=== PATIENT | male | born 1960 | race African-American/Black ===

== ENCOUNTER → 2017-05-02 | Outpatient (CLI) | payer OTHER ==
--- NOTE | 2017-05-02 12:26 | EST ---
DATE OF SERVICE: 05/02/2017 AGE: 57Y SEX: M HT: 72" WT: 234 lbs. Protocol Sebastian: X Other: Stress Stage: 2 Dur. of Exercise: 7:00 *Heart Rate Blood Pressure *Rest: 82 Rest: 132/91 * *Max. Achieved: 158 Maximum BP: 196/98 85% PMHR: 139 100% PMHR: 163 *METS: 8.3 INDICATIONS: Chest pain. MEDICATIONS: [place], aspirin, cholesterol meds, Viagra. STRESS DATA: Pretesting physical examination showed heart rate of 82, pressure is 132/91 mmHg. EKG showed sinus rhythm. The patient exercised on the treadmill according to Sebastian protocol for a total of 7 minutes and achieved 8 of METs. The max heart rate was 158, which is about 93% of maximum predicted heart rate. Maximum blood pressure was 196/98 mmHg. Clinically, the patient did not have any symptoms of chest pain or discomfort during the testing or on the recovery and the EKG did not show any significant ST or T-wave abnormalities consistent with ischemia. CONCLUSION: 1. Excellent exercise capacity. 2. Normal EKG in response to exercise. 3. Essentially normal exercise treadmill stress test for this gentleman.
== END | disposition home or self-care (01) ==
LOC: RADNMMAIN 10:48
PROVIDERS: ATTEND Internal Medicine
DX: R07.89 Other chest pain (principal)
CPT/HCPCS: 93017

== ENCOUNTER → 2022-12-22 | Outpatient (CLI) | payer OTHER ==
--- NOTE | 2022-12-22 13:27 | XR ---
EXAMINATION TYPE: XR lumbosacral spine min 4V DATE OF EXAM: 12/22/2022 CLINICAL HISTORY: Chronic low back pain TECHNIQUE: Frontal, lateral, and oblique images of the lumbar spine are obtained. COMPARISON: MRI 05/05/2012 FINDINGS: There is partial sacralization of L5. There are moderate facet and disc space degenerative changes particularly at L4-L5 and L5-S1 with associated foraminal stenosis on the right. There is gra de 1 anterolisthesis of L4 on L5. Disc space changes at L4-L5 and listhesis have progressed since marisa or MRI in 2011. No spondylolysis. Vertebral body heights are maintained. Stool throughout the colon. Nonobstructive bowel gas pattern IMPRESSION: Partial sacralization of L5. Moderate disc space and facet degenerative changes at L4 and L5 with associated right-sided neurofora vicky stenosis.
== END | disposition home or self-care (01) ==
LOC: RADXRMAIN 09:27
PROVIDERS: ATTEND Physical Medicine & Rehabilitation
DX: M47.816 Spondylosis without myelopathy or radiculopathy, lumbar region (principal); M51.37 Other intervertebral disc degeneration, lumbosacral region; M99.73 Connective tissue and disc stenosis of intervertebral foramina of lumbar region
CPT/HCPCS: 72110

== ENCOUNTER → 2024-12-30 | Outpatient (CLI) | payer OTHER ==
--- NOTE | 2024-12-30 12:54 | MR ---
INDICATION: Patient age:Male; 64 years old; Reason for study: M54.12 RADICULOPATHY, CERVICAL REGION; PHH. COMPARISON: None. TECHNIQUE: Multi planar, multi sequence imaging was performed of the cervical spine. No Gadolinium wa s given. FINDINGS: Alignment: The cervical vertebral bodies have preserved heights. Alignment is within normal limits gi karen patient positioning. Bones: Bone signal is within normal limits. Multilevel anterior osteophytosis. Cord: The spinal cord is unremarkable with regards to their signal intensity and morphology. Discs: Multilevel disc desiccation is present. C2-C3: No significant disc pathology. The spinal canal is patent. No neural foraminal stenosis. C3-C4: Mild broad base disc bulge without significant effacement of the anterior thecal sac. No neura l foraminal stenosis. C4-C5: Mild broad base disc bulge without significant effacement of the anterior thecal sac. No neura l foraminal stenosis. C5-C6: Mild broad base disc bulge without significant effacement of the anterior thecal sac. No neura l foraminal stenosis. C6-C7: Mild broad base disc bulge without significant effacement of the anterior thecal sac. Uncovert ebral joint hypertrophy with mild lateral neuroforaminal stenosis. C7-T1: No significant disc pathology. The spinal canal is patent. No neural foraminal stenosis. Other: Right midline posterior neck subcutaneous superficial 1.6 x 2.2 cm T2 hyperintense lesion. The re is corresponding hyperintense STIR signal. Probable represents a benign sebaceous cyst. IMPRESSION: 1. No evidence for disc herniation or significant spinal canal stenosis. 2. Multilevel disc degeneration with associated osteoarthritic changes as described above. [facility], , 12/30/2024 12:52 PM
== END | disposition home or self-care (01) ==
LOC: RADMRIMAIN 09:57
PROVIDERS: ATTEND Family Medicine
DX: M50.121 Cervical disc disorder at C4-C5 level with radiculopathy (principal); M47.22 Other spondylosis with radiculopathy, cervical region
CPT/HCPCS: 72141

== ENCOUNTER 2025-06-19 09:01 | Day surgery (SDC) | payer OTHER ==
[2025-06-17 11:42] VITALS: BMI 31.7
--- NOTE | 2025-06-19 08:13 | P.GSHP ---
History of Present Illness H&P Date: 06/19/25 CHIEF COMPLAINT: Colon screen HISTORY OF PRESENT ILLNESS: The patient is a 65-year-old male who presents for colon screen. Lower endoscopy was offered for further evaluation and management. PAST MEDICAL HISTORY: Please see list. PAST SURGICAL HISTORY: Please see list. MEDICATIONS: Please see list. ALLERGIES: Please see list. SOCIAL HISTORY: No illicit drug use FAMILY HISTORY: No reports of Crohn disease or ulcerative colitis. REVIEW OF ORGAN SYSTEMS: CONSTITUTIONAL: No reports of fevers or chills. PHYSICAL EXAM: VITAL SIGNS: Stable GENERAL: Well-developed pleasant in no acute distress. HEENT: No scleral icterus. Extraocular movements grossly intact. Moist buccal mucosa. NECK: Supple without lymphadenopathy. CHEST: Unlabored respirations. Equal bilateral excursions. CARDIOVASCULAR: Regular rate and rhythm. Distal 2+ pulses. ABDOMEN: Soft, nontender, nondistended. MUSCULOSKELETAL: No clubbing, cyanosis, or edema. ASSESSMENT: 1. Colon screen. PLAN: 1. Recommend proceeding with a lower endoscopy Past Medical History Past Medical History: Hyperlipidemia, Musculoskeletal Disorder Additional Past Medical History / Comment(s): back problems, UMBILICAL HERNIA History of Any Multi-Drug Resistant Organisms: None Reported Past Surgical History: Hernia Repair Additional Past Surgical History / Comment(s): COLONOSCOPY, Past Anesthesia/Blood Transfusion Reactions: No Reported Reaction Smoking Status: Former smoker - Past Family History Mother Family Medical History: No Reported History Medications and Allergies Home Medications Medication Instructions Recorded Confirmed Type HYDROcodone/APAP 10-325MG [[place] 1 tab PO Q6H PRN 09/16/16 06/17/25 History 10-325] Rosuvastatin Calcium [Crestor] 5 mg PO DAILY 09/16/16 06/17/25 History Allergies Allergy/AdvReac Type Severity Reaction Status Date / Time No Known Allergies Allergy Verified 06/17/25 11:35
[2025-06-19] MEDS ORDERED: LACTATED RINGERS 1,000 ML IV SCH (09:19)
[2025-06-19] MEDS: IV FLUID CONTINUATION 1,000 ML IV ONE (09:20)
[2025-06-19 09:27] VITALS: TEMP 97.8
[2025-06-19] MEDS ORDERED: PROPOFOL 10 MG/ML 20 ML VIAL IV ONE (10:21)
[2025-06-19] MEDS ORDERED: LIDOCAINE 1% INJ 10MG/ML (20 ML MDV) ONE (10:21)
--- NOTE | 2025-06-19 10:45 | P.PCN ---
Date of Procedure: 06/19/25 Description of Procedure: PREOPERATIVE DIAGNOSIS: Personal history of colon polyps Colonoscopy screening POSTOPERATIVE DIAGNOSIS: Tubular adenoma hepatic flexure Tubular adenoma appendix Sigmoid diverticulosis OPERATION: Colonoscopy to the ileocecal valve and appendiceal orifice, cecum Colonoscopy with hot snare polypectomy SURGEON: Jami Rosales MD. ANESTHESIA: MAC. INDICATIONS: The patient is an 65-year-old male who presents personal history of colon polyps. Last colonoscopy 5 years. Benefits and risks were described and informed consent was obtained. DESCRIPTION OF PROCEDURE: The patient had undergone Suprep. The patient had been brought into the operating room and laid in the left lateral decubitus position. After adequate intravenous sedation, the rectum was examined with 2% lidocaine jelly. The prostate was unremarkable. No external hemorrhoids were encountered. The rectal tone was within normal limits. No lesions were palpated in the rectal vault. An Olympus colonoscope was advanced until the cecum, ileocecal valve and appendiceal orifice were clearly viewed. The prep was good. Sigmoid diverticulosis was encountered. Colonic polyps were found and removed. No evidence of focal colitis was found. Retroflexion of the scope demonstrated grade 2 internal hemorrhoids without active bleeding or inflammation. The colon was desufflated. The patient had tolerated the procedure well. Withdrawal time was over 6 minutes. FINDINGS: Aronchick preparation quality scale 2 (1-5) Internal hemorrhoids, grade 1 No external hemorrhoids No arteriovenous malformations. Sigmoid diverticulosis Removal of 3 polyps: - Snare polypectomy at appendiceal orifice, 5 mm tubulovillous adenoma - Snare polypectomy mid transverse colon x 2, 4 - 6 mm flat villous adenoma No focal colitis. RECOMMENDATIONS: Repeat colonoscopy 3 years, 2027 Plan - Discharge Summary Discharge Rx Participant: No New Discharge Prescriptions: Continue Rosuvastatin Calcium [Crestor] 5 mg PO DAILY HYDROcodone/APAP 10-325MG [[place] 10-325] 1 tab PO Q6H PRN PRN Reason: Pain Discharge Medication List HYDROcodone/APAP 10-325MG [[place] 10-325] 1 tab PO Q6H PRN 09/16/16 [History] Rosuvastatin Calcium [Crestor] 5 mg PO DAILY 09/16/16 [History] Follow up Appointment(s)/Referral(s): Jami Rosales MD [STAFF PHYSICIAN] - As Needed Patient Instructions/Handouts: Diverticulosis Diet (GEN), Diverticulosis (GEN), Colorectal Polyps (GEN) Activity/Diet/Wound Care/Special Instructions: Repeat colonoscopy 3 years, 2027 Discharge Disposition: HOME SELF-CARE
[2025-06-19 10:53] VITALS: RESP 16
--- NOTE | 2025-06-19 10:55 | P.PN ---
Progress Note - Text Progress Note Date: 06/19/25 Patient has uncontrolled hypertension. Will obtain EKG
[2025-06-19] MEDS: hydrALAZINE HCL 20 MG/ML 1 ML VIAL IVP STA (11:17)
[2025-06-19 11:45] VITALS: BP 154/93; PULSE 62
== END 2025-06-19 12:02 | disposition home or self-care (01) ==
LOC: ORWHC2ENDO 09:01
PROVIDERS: ATTEND Surgery Plastic and Reconstructive Surgery
DX: Z12.11 Encounter for screening for malignant neoplasm of colon (principal); K63.5 Polyp of colon; E78.5 Hyperlipidemia, unspecified; I10 Essential (primary) hypertension; K57.30 Diverticulosis of large intestine without perforation or abscess without bleeding; Z87.891 Personal history of nicotine dependence; Z86.0100 Personal history of colon polyps, unspecified; Z98.890 Other specified postprocedural states; Z79.899 Other long term (current) drug therapy
CPT/HCPCS: 88305; 45385; J0360; J2003; J2704